=== PATIENT | female | born 1940 | race Caucasian/White ===

== ENCOUNTER 2017-04-17 07:34 | Outpatient (CLI) | payer MEDICARE | END 2017-04-17 07:35 | disposition home or self-care (01) | LOC: BICMAMMO 07:34 | PROVIDERS: ATTEND Internal Medicine Medical Oncology | DX: Z12.31 Encounter for screening mammogram for malignant neoplasm of breast (principal) | CPT/HCPCS: 77063; G0202; 77067 ==

== ENCOUNTER 2018-04-20 10:01 | Outpatient (CLI) | payer MEDICARE | END 2018-04-20 10:02 | disposition home or self-care (01) | LOC: BICMAMMO 10:01 | PROVIDERS: ATTEND Internal Medicine Medical Oncology | DX: Z12.31 Encounter for screening mammogram for malignant neoplasm of breast (principal); R92.1 Mammographic calcification found on diagnostic imaging of breast; Z85.89 Personal history of malignant neoplasm of other organs and systems | CPT/HCPCS: 77063; 77067 ==

== ENCOUNTER 2019-05-26 10:46 | Outpatient (CLI) | payer MEDICARE ==
--- NOTE | 2019-05-26 12:00 | MMO ---
Bilateral MAMMO Bilat Screen [facility]. CLINICAL HISTORY: Patient is 78 years old and is seen for screening. The patient has no family history of breast cancer. The patient has no personal history of cancer. VIEWS: The views performed were: bilateral craniocaudal with tomosynthesis and bilateral mediolateral oblique with tomosynthesis. FILMS COMPARED: The present examination has been compared to prior imaging studies performed at [facility] on 04/16/2016, 04/17/2017 and 04/20/2018, and at [facility] on 02/26/2015. This study has been interpreted with the assistance of computer-aided detection. MAMMOGRAM FINDINGS: There are scattered fibroglandular densities. Finding 1: There are stable benign appearing calcifications seen in both breasts. Finding 2: There are stable benign appearing densities seen in both breasts. There are no suspicious masses, suspicious calcifications, or new areas of architectural distortion. IMPRESSION: THERE IS NO MAMMOGRAPHIC EVIDENCE OF MALIGNANCY. A ROUTINE FOLLOW-UP MAMMOGRAM IN 1 YEAR IS RECOMMENDED. THE RESULTS OF THIS EXAM WERE SENT TO THE PATIENT. ACR BI-RADS Category 2 - Benign finding MAMMOGRAPHY NOTE: 1. A negative mammogram report should not delay a biopsy if a dominant of clinically suspicious mass is present. 2. Approximately 10% to 15% of breast cancers are not detected by mammography. 3. Adenosis and dense breasts may obscure an underlying neoplasm. Reported by: JOSE NARANJO MD Electonically Signed: [id number]
== END 2019-05-26 10:47 | disposition home or self-care (01) ==
LOC: BICMAMMO 10:46
PROVIDERS: ATTEND Internal Medicine Medical Oncology
DX: Z12.31 Encounter for screening mammogram for malignant neoplasm of breast (principal)
CPT/HCPCS: 77063; 77067